=== PATIENT | female | born 1990 | race American Indian/Alaskan Native ===

== ENCOUNTER 2016-06-11 16:24 | Emergency (ER) | payer MEDICAID ==
[2016-06-11 18:20] LABS: Bilirubin,Urine NEG (Negative); Blood,Urine SM (Negative); Ketones,Urine NEG (Negative); Leukocyte Esterase,Urine NEG (Negative); Nitrite,Urine NEG (Negative); Protein,Urine <15 mg/dL mg/dL (Negative); RBC,Urine < 1.0 /HPF (0.0-6.0); Urobilinogen,Urine < 2.0 mg/dL (<2.0)
[2016-06-11 18:51] LABS: Basophils % (Auto) 0.6 % (0.0-1.8); Eosinophils % (Auto) 1.4 % (0.0-4.3); Hemoglobin 13.5 gm/dl (10.1-14.3); Mean Corpuscular HGB Conc 34 % (30-34); Mean Corpuscular Hemoglobin 31 pg (28-32); Mean Corpuscular Volume 93 fl (79-97); Platelet Count 278 K/mm3 (140-440); Red Blood Count 4.31 M/mm3 (3.65-5.03); Red Cell Distribution Width 12.9 % (13.2-15.2); White Blood Count 6.8 K/mm3 (4.5-11.0)
--- NOTE | 2016-06-11 23:31 | Emergency Department Report ---
ED Female HPI - General Chief complaint: Vaginal Bleeding Stated complaint: /BLEEDING Time Seen by Provider: 06/11/16 22:49 Source: patient Mode of arrival: Ambulatory Limitations: No Limitations - History of Present Illness Initial comments: This is a pleasant 25-year-old female who is 7 weeks by dates and a home test reports last night having small amount of bright red blood per vagina. She states that she's had some mild spotting today but then the bleeding is otherwise stopped. She has had some mild cramping both less than as well as throughout the day intermittently. She reports charge otherwise. She denies any dysuria. She denies any significant abdominal pains associated with this. No radiation of the pain is otherwise reported. Nothing seems to make it better or worse. - Related Data Allergies Allergy/AdvReac Type Severity Reaction Status Date / Time No Known Allergies Allergy Unverified 06/11/16 17:04 ED Review of Systems ROS: Stated complaint: /BLEEDING Other details as noted in HPI Comment: All other systems reviewed and negative Constitutional: denies: chills, fever Eyes: denies: eye pain, eye discharge, vision change ENT: denies: ear pain, throat pain Respiratory: denies: cough, shortness of breath, wheezing Cardiovascular: denies: chest pain, palpitations Endocrine: no symptoms reported Gastrointestinal: denies: abdominal pain, nausea, diarrhea Genitourinary: other (vaginal bleeding with some cramping.). denies: urgency, dysuria, discharge Musculoskeletal: denies: back pain, joint swelling, arthralgia Skin: denies: rash, lesions Neurological: denies: headache, weakness, paresthesias Psychiatric: denies: anxiety, depression Hematological/Lymphatic: denies: easy bleeding, easy bruising ED Past Medical Hx - Past Medical History Previous Medical History?: No - Surgical History Additional Surgical History: Tonsil - Social History Smoking Status: Never Smoker Substance Use Type: None ED Physical Exam - General Limitations: No Limitations General appearance: alert, in no apparent distress - Head Head exam: Present: atraumatic, normocephalic - Eye Eye exam: Present: normal appearance, EOMI. Absent: scleral icterus - ENT ENT exam: Present: normal exam, normal orophraynx, mucous membranes moist - Neck Neck exam: Present: normal inspection. Absent: tenderness, lymphadenopathy - Respiratory Respiratory exam: Present: normal lung sounds bilaterally. Absent: respiratory distress, wheezes, rales - Cardiovascular Cardiovascular Exam: Present: regular rate, normal rhythm. Absent: systolic murmur, diastolic murmur, rubs, gallop - GI/Abdominal GI/Abdominal exam: Present: soft, normal bowel sounds. Absent: tenderness, guarding - Extremities Exam Extremities exam: Present: normal inspection. Absent: tenderness, pedal edema, calf tenderness - Back Exam Back exam: Present: normal inspection. Absent: tenderness, CVA tenderness (R), CVA tenderness (L) - Neurological Exam Neurological exam: Present: alert, oriented X3 - Psychiatric Psychiatric exam: Present: normal affect, normal mood - Skin Skin exam: Present: warm, dry, intact, normal color. Absent: rash ED Course Vital Signs 06/11/16 06/12/16 17:04 00:18 Temperature 98.3 F Pulse Rate 80 75 Respiratory 18 18 Rate Blood Pressure 108/71 Blood Pressure 116/76 [Left] O2 Sat by Pulse 100 100 Oximetry - Reevaluation(s) Reevaluation #1: 06/12/16 07:07 Labs are noted here. Urinalysis is unremarkable. HCG Quant is noted. The Quant is not quite as high as I would anticipate. There is a large variable rates early in however. Ultrasound performed by measurement coordinator demonstrates intrauterine with a gestational sac and yolk sac being noted. Measuring 5 weeks 3 days. I did have a long conversation with the patient regarding the difficulty in knowing whether this is a viable . I did encourage patient to get a repeat hCG test done in 2-3 days. She is agreeable to do this. She is noted to be O+ on her blood type. She is not having active bleeding here anymore she is not having any pain at this time either. These are reassuring findings. She is very confident in her dates and this is what bothers her. I can't really say More at this time then the possibility of her having threatened miscarriage. Patient did have a pelvic examination approximate one month ago for concern for STDs. These were negative. She declines repeating this today. ED Medical Decision Making - Lab Data Result diagrams: 06/11/16 18:30 Critical care attestation.: If time is entered above; I have spent that time in minutes in the direct care of this critically ill patient, excluding procedure time. ED Disposition Clinical Impression: Threatened in early Disposition: DISCHARGED TO HOME OR SELFCARE Is pt being admited?: No Does the pt Need Aspirin: No Condition: Stable Additional Instructions: Your HCG level today is 1286. It should be rising appropriately if this is a viable . Get repeat HCG study done on or Friday to determine whether it is rising appropriately. Return immediately if worsening pains. Referrals: [facility] [Provider Group] - 3-5 Days Time of Disposition: 00:05
--- NOTE | 2016-06-12 | Ultrasound Report ---
FINAL REPORT PROCEDURE: US OB TRANSVAGINAL TECHNIQUE: Real-time transvaginal sonography of the uterus, placenta, amniotic fluid, adnexa, and fetus was performed with image documentation. Measurements were obtained to determine age/size. M-mode Doppler was used to document heartbeat. CPT 67793 HISTORY: vag bleeding/pain 7 weeks by dates COMPARISON: Transabdominal OB ultrasound also performed this evening. FINDINGS: The report for this exam was generated utilizing images from both the transvaginal and transabdominal OB ultrasound both performed this evening. There is a gestational sac visualized centrally in the endometrial canal. Yolk sac is visualized. pole and heartbeat are not seen. It may be too early to visualize the structures. The mean gestational sac diameter 7.1 millimeters corresponding to an age of 5 weeks 3 days. No evidence of subchorionic hemorrhage. The amount of amniotic fluid appears normal. Shape of the gestational sac appears normal. No uterine masses are identified. Minimal nonspecific free fluid is seen in the cul-de-sac. The right and left ovaries are unremarkable. No abnormal adnexal masses are seen. The right ovary measures 2.6 x 2.2 x 2.4 centimeter. The left ovary measures 2.1 x 1.1 x 2.1 centimeters. IMPRESSION: There is a gestational sac located centrally in the endometrial canal. Yolk sac is seen. pole and heartbeat are not seen. It may be too early to visualize the structures. By gestational sac measurements the expected age is 5 weeks 3 days. Consider follow-up OB ultrasound in 1 week to evaluate for living intrauterine . Minimal nonspecific free fluid is seen in the cul-de-sac. No other abnormalities are seen.
--- NOTE | 2016-06-12 00:03 | Ultrasound Report ---
FINAL REPORT PROCEDURE: US OB \T\lt; = 14 WEEKS FETUS TECHNIQUE: Real-time transabdominal sonography of the uterus, placenta, amniotic fluid, adnexa, and fetus was performed with image documentation. Measurements were obtained to determine age/size. M-mode Doppler was used to document heartbeat. CPT 69790 HISTORY: vag bleeding/pain 7 weeks by dates COMPARISON: No prior studies are available for comparison. FINDINGS: The report for this exam was generated utilizing images from both the transvaginal and transabdominal OB ultrasound both performed this evening. There is a gestational sac visualized centrally in the endometrial canal. Yolk sac is visualized. pole and heartbeat are not seen. It may be too early to visualize the structures. The mean gestational sac diameter 7.1 millimeters corresponding to an age of 5 weeks 3 days. No evidence of subchorionic hemorrhage. The amount of amniotic fluid appears normal. Shape of the gestational sac appears normal. No uterine masses are identified. Minimal nonspecific free fluid is seen in the cul-de-sac. The right and left ovaries are unremarkable. No abnormal adnexal masses are seen. The right ovary measures 2.6 x 2.2 x 2.4 centimeter. The left ovary measures 2.1 x 1.1 x 2.1 centimeters. IMPRESSION: There is a gestational sac located centrally in the endometrial canal. Yolk sac is seen. pole and heartbeat are not seen. It may be too early to visualize the structures. By gestational sac measurements the expected age is 5 weeks 3 days. Consider follow-up OB ultrasound in 1 week to evaluate for living intrauterine . Minimal nonspecific free fluid is seen in the cul-de-sac. No other abnormalities are seen.
[2016-06-12 00:19] VITALS: BP 116/76
== END 2016-06-12 00:19 | disposition home or self-care (01) ==
LOC: ED 16:24
DX: O20.0 Threatened abortion (principal); Z3A.01 Less than 8 weeks gestation of pregnancy
CPT/HCPCS: 36415; 76801; 76817; 81001; 84702; 85025; 86850; 86900; 86901